=== PATIENT | female | born 1990 | race Caucasian/White ===

== ENCOUNTER 2019-06-08 21:55 | Emergency (ER) | payer SELFPAY ==
[2019-06-08 22:03] VITALS: BP 135/78; PULSE 94; RESP 16; TEMP 36.8; O2SAT 98
--- NOTE | 2019-06-08 22:21 | ED.DENTAL ---
HPI - Dental/Oral General Chief complaint: Dental/Oral Stated complaint: EAR AND JAW AREA PAIN Source: patient History of Present Illness HPI Narrative: Patient presents with dental pain right upper molars and premolars with the surrounding gum inflammation has had similar episodes and has not seen a dentist, currently there is radiation into her right ear with no fever or chills tender right submandibular gland with no nausea vomiting no shortness of breath. Complaint: tooth pain Onset (ago): month(s) Duration: intermittent Severity scale (1-10): 8 Relieving factors: nothing Exacerbating factors: chewing Context: history of dental caries Associated symptoms: gum swelling Treatment prior to arrival: none Related Data Home Medications Medication Instructions Recorded Confirmed alprazolam [Xanax] 1 mg PO BID PRN 03/13/19 06/08/19 fluoxetine [Prozac] 20 mg PO DAILY 03/13/19 06/08/19 Allergies Allergy/AdvReac Type Severity Reaction Status Date / Time No Known Allergies Allergy Verified 03/13/19 11:37 Review of Systems Review of Systems: All systems reviewed & are unremarkable except as noted in HPI and below PMFSH Past Medical History Medical History Anxiety Gestational diabetes Surgical History Surgical History deliv NOS-unsp History of dilatation and curettage History of placement of ear tubes Social History Social History Years smoked: 4 Exam Const: General: no acute distress and alert Orientation/consciousness: patient oriented x3 HENMT: Head: normal to inspection Other: Dental pain with pain, dental and cavities with surrounding gum inflammation motor and pre molar on the right upper Eyes: Conjunctivae: conjunctivae normal Pupils: Equal, round and reactive pupils present Neck: Neck: normal visual inspection and lymphadenopathy Chest: Chest palpation & inspection: normal inspection of the chest Resp: Effort & Inspection: normal respiratory effort Auscultation: clear to auscultation bilaterally Cardio: Rate: regular rate Rhythm: regular rhythm : General: Yes no CVA tenderness Skin: General skin exam: normal color Rashes: no rashes Neuro: General: patient oriented x3 Extrem: General: normal to inspection Course Vital Signs Vital signs: Vital Signs Temperature 36.8 C 06/08/19 22:03 Pulse Rate 94 06/08/19 22:03 Respiratory Rate 16 06/08/19 22:03 Blood Pressure 135/78 06/08/19 22:03 Pulse Oximetry 98 06/08/19 22:03 Temperature 36.8 C 06/08/19 22:03 Pulse Rate 94 06/08/19 22:03 Respiratory Rate 16 06/08/19 22:03 Blood Pressure 135/78 06/08/19 22:03 Pulse Oximetry 98 06/08/19 22:03 Critical Care Time Critical Care Time Critical Care Time: No Discharge Plan Discharge Clinical Impression: Dental caries, Dental abscess Patient Disposition: Home, Self-Care Condition: Stable Instructions: Antibiotic Form, Dental Abscess (ED), Toothache (ED) Additional Instructions: take medicine as prescribed, and follow-up with dentist as soon as possible. Prescriptions: New sulfamethoxazole-trimethoprim [Bactrim DS] 800-160 mg tablet 1 tablet PO Q12H Qty: 20 RF: 0 tramadol [Ultram] 50 mg tablet 50 mg PO Q6H PRN (Reason: pain) Qty: 20 RF: 0 No Action alprazolam [Xanax] 1 mg Tablet 1 mg PO BID PRN (Reason: Anxiety) RF: 0 fluoxetine [Prozac] 20 mg Capsule 20 mg PO DAILY RF: 0 Follow-up/Referrals: PHYSICIAN NOT ON STAFF,NONSTAFF [Primary Care Provider] - Stand Alone Forms: Work/School Release IP Time of Disposition: 22:26
[2019-06-08] MEDS: TRAMADOL HCL 50 MG TABLET PO (22:44)
[2019-06-08 22:45] VITALS: RESP 17
== END 2019-06-08 22:45 | disposition home or self-care (01) ==
PROVIDERS: Emergency Provider Emergency Medicine
DX: K02.9 Dental caries, unspecified (principal); K04.7 Periapical abscess without sinus
CPT/HCPCS: 99283; A9270